=== PATIENT | female | born 1945 | race Caucasian/White ===

== ENCOUNTER 2017-09-13 12:36 | Emergency (ER) | payer OTHER ==
--- NOTE | 2017-09-13 12:41 | UC ---
FLU HPI - HPI Summary HPI Summary: Pt presents with sore throat and mild fatigue since last night. Her was recently dx'd with the flu and she is asking to be tested. Denies fever, chills , SOB, chest pain, abdominal pain, n/v/d/c. - History of Current Complaint Stated Complaint: SORE THROAT Onset/Duration: Sudden Onset Severity Currently: Mild Severity Initially: Mild Pain Intensity: 2 Pain Scale Used: 0-10 Numeric PMH/Surg Hx/FS Hx/Imm Hx Previously Healthy: Yes - Family History Known Family History: Positive: Unknown - Social History Occupation: Retired Lives: With Family Alcohol Use: None Substance Use Type: None Review of Systems Constitutional: Fatigue Skin: Negative Eyes: Negative ENT: Sore Throat Respiratory: Negative Cardiovascular: Negative Neurological: Negative Psychological: Negative All Other Systems Reviewed And Are Negative: Yes Physical Exam - Summary Physical Exam Summary: GENERAL: NAD. WDWN. No pain distress. SKIN: No rashes, sores, ulcers, masses, lesions. No clubbing or cyanosis. HEENT: Head: AT/NC Eyes: EOM intact. Conjunctiva clear without inflammation or discharge. Ears: Hearing grossly normal. TMs intact, no bulging, erythema, or edema. Nose: Nasal mucosa pink and moist. NTTP maxillary and frontal sinus. Throat: Posterior oropharynx without exudates, erythema, or tonsillar enlargement. Uvula midline. NECK: Supple. Nontender. No lymphadenopathy. CHEST: CTAB. No r/r/w. No accessory muscle use. Breathing comfortably and in no distress. CV: RRR. Without m/r/g. Pulses intact. Brisk cap refill. NEURO: Alert. CN II-XII grossly intact. PSYCH: Age appropriate behavior. Triage Information Reviewed: Yes Flu Course/Dx - Course Course Of Treatment: POC flu A positive. Tamiflu - Differential Dx/Diagnosis Provider Diagnoses: Influenza A Discharge - Discharge Plan Condition: Stable Disposition: HOME Prescriptions: Oseltamivir CAP* [Tamiflu CAP*] 75 mg PO BID #10 cap Patient Education Materials: Influenza (DC) Referrals: Maile Suarez MD [Primary Care Provider] - Additional Instructions: If you develop a fever, shortness of breath, chest pain, new or worsening symptoms - please call your PCP or go to the ED.
== END 2017-09-13 13:10 | disposition home or self-care (01) ==
LOC: UCEAST 12:36
DX: J10.1 Influenza due to other identified influenza virus with other respiratory manifestations (principal)
CPT/HCPCS: 87502; 99212; G0463

== ENCOUNTER 2018-03-23 12:49 | Emergency (ER) | payer OTHER ==
[2018-03-23 13:11] VITALS: BP 141/79
[2018-03-23] MEDS ORDERED: Lidocaine 1%* 5 ML VIAL INJ ONE (14:11)
--- NOTE | 2018-03-23 14:39 | ED ---
Laceration/Wound HPI - HPI Summary HPI Summary: c/o laceration to top of left foot after dropping glass jug on it. bleeding controlled. no anticoag. Tetanus status up-to-date. - History of Current Complaint Stated Complaint: FOOT LAC Time Seen by Provider: 03/23/18 14:02 Hx Obtained From: Patient Mechanism of Injury: Sharp/Blunt Trauma Current Severity: None Pain Intensity: 0 Pain Scale Used: 0-10 Numeric Associated Signs & Symptoms: Negative - Allergy/Home Medications Allergies/Adverse Reactions: Allergies Allergy/AdvReac Type Severity Reaction Status Date / Time codeine Allergy GI Upset Verified 03/23/18 13:12 Home Medications: Home Medications Anastrozole (NF) [Arimidex (NF)] 1 tab PO DAILY 03/23/18 [History Confirmed 10/05] Cholecalciferol (Vitamin D3) [D3-1999] 1 tab PO DAILY 03/23/18 [History Confirmed 03/23/18] PMH/Surg Hx/FS Hx/Imm Hx Endocrine/Hematology History: Denies: Hx Anticoagulant Therapy Cardiovascular History: Denies: Hx Cardiac Arrest History: Denies: Hx Dialysis Musculoskeletal History: Denies: Hx Osteoporosis Neurological History: Denies: Hx CVA - Cancer History Cancer Type, Location and Year: Breast Hx Chemotherapy: No Hx Radiation Therapy: Yes - Surgical History Surgery Procedure, Year, and Place: right lumpectomy Infectious Disease History: No Infectious Disease History: Denies: Traveled Outside the [place] in Last 30 Days - Family History Known Family History: Negative: Diabetes - Social History Alcohol Use: Occasionally Substance Use Type: Reports: None Smoking Status (MU): Never Smoked Tobacco Review of Systems Constitutional: Negative Eyes: Negative ENT: Negative Cardiovascular: Negative Respiratory: Negative Gastrointestinal: Negative Genitourinary: Negative Musculoskeletal: Negative Skin: Other Neurological: Negative Psychological: Normal All Other Systems Reviewed And Are Negative: Yes Physical Exam - Summary Physical Exam Summary: active flexion and extension intact distally. pms intact distally. no involvement of tendon visualized. Triage Information Reviewed: Yes Vital Signs On Initial Exam: Initial Vitals Temp Pulse Resp BP Pulse Ox 98.7 F 66 12 141/79 100 03/23/18 13:06 03/23/18 13:06 03/23/18 13:06 03/23/18 13:06 03/23/18 13:06 Vital Signs Reviewed: Yes Appearance: Positive: Well-Appearing Skin: Positive: Warm Head/Face: Positive: Normal Head/Face Inspection Eyes: Positive: Normal Neck: Positive: Supple Respiratory/Lung Sounds: Positive: Clear to Auscultation Cardiovascular: Positive: Normal Abdomen Description: Positive: Nontender Musculoskeletal: Positive: Normal Neurological: Positive: Normal Psychiatric: Positive: Normal AVPU Assessment: Alert - Lance Coma Scale Best Eye Response: 4 - Spontaneous Best Motor Response: 6 - Obeys Commands Best Verbal Response: 5 - Oriented Coma Scale Total: 15 Procedures - Laceration/Wound Repair 1 Location: lower extremity Description: Linear Anesthesia: Local, 1.0% Length, Depth and Shape: 4cm x 0.5cm Betadine Prep?: No - chlorhexadine prep Irrigated w/ Saline (ccs): 10 Laceration/Wound Explored: clean Debridement: minimal Suture Type: Prolene Number of Sutures: 6 Layer Closure?: No Sterile Dressing Applied?: No Diagnostics - Vital Signs Vital Signs Temp Pulse Resp BP Pulse Ox 03/23/18 13:06 98.7 F 66 12 141/79 100 - Laboratory Lab Statement: Any lab studies that have been ordered have been reviewed, and results considered in the medical decision making process. Laceration Repair Course/Dx - Course Course Of Treatment: c/o laceration to top of left foot after dropping glass jug on it. bleeding controlled. no anticoag. Tetanus status up-to-date. Physical exam:active flexion and extension intact distally. pms intact distally. no involvement of tendon visualized. Vital signs normal. Wound sutured. Rx for Keflex - Clinical Impression Provider Diagnoses: Laceration Discharge - Sign-Out/Discharge Documenting (check all that apply): Patient Departure All imaging exams completed and their final reports reviewed: No Studies - Discharge Plan Condition: Stable Disposition: HOME Prescriptions: Cephalexin CAP* [Keflex CAP*] 500 mg PO TID 5 Days #15 cap Patient Education Materials: Care For Your Stitches (ED), Laceration (ED) Referrals: Maile Suarez MD [Primary Care Provider] - Additional Instructions: Sutures out in 10 days. May wash with warm running water and soap starting tomorrow. Do not submerge wound for 5 days. Keep covered when not washing. Take antibiotics as directed. Return for any new or worsening symptoms. - Billing Disposition and Condition Condition: STABLE Disposition: Home - Attestation Statements Provider Attestation: Per institutional requirements, I have reviewed the chart, however, I was not consulted specifically or made aware of this patient by the midlevel provider. I did not personally evaluate, interact with , or disposition this patient.
== END 2018-03-23 14:50 | disposition home or self-care (01) ==
LOC: UCEAST 12:49
DX: S91.312A Laceration without foreign body, left foot, initial encounter (principal); W20.8XXA Other cause of strike by thrown, projected or falling object, initial encounter; Y93.9 Activity, unspecified; Y92.9 Unspecified place or not applicable; Z88.5 Allergy status to narcotic agent
CPT/HCPCS: 12002; 99212; G0463

== ENCOUNTER 2018-08-27 06:48 | Day surgery (SDC) | payer MEDICARE, OTHER ==
[~2018-08-27 06:48] MED LIST: Acetaminophen IV 1GM/100ML * 10 MG/ML VIAL IVPB ONE; Buffered Lidocaine 1% SYRIN* 1 ML/SYRINGE INTRADERM ONE; Dexamethasone TAB* 4 MG PO ONE; DiMENhydriNATE IV* 50 MG/ML VIAL IV PUSH ONE; Famotidine IV* 10 MG/ML 2 ML (20 mg) IV ONE; Lactated Ringers 1000 ML Bag* 1,000 ML IV SCH; Morphine VIAL* 4 MG/ML VIAL (1 ml vial) IV PRN; Naloxone* 0.4 MG/ML 1 ML VIAL IV PRN; Ondansetron TAB* 4 MG PO ONE; PROCHLORPERAZINE INJ 5 MG/ML 2 ML VIAL IV PRN; Scopolamine 1.5 mg* PATCH TRANSDERM PRN; fentaNYL* 50 MCG/ML 2 ML VIAL (100 MCG VIAL) IV PRN; oxyCODONE TAB* 5 MG TAB PO PRN
[2018-08-27] MEDS ORDERED: Famotidine IV* 10 MG/ML 2 ML (20 mg) ONE (07:23)
[2018-08-27] MEDS ORDERED: DiMENhydriNATE IV* 50 MG/ML VIAL ONE (07:23)
[2018-08-27] MEDS ORDERED: Ondansetron ODT TAB* 4 MG ONE (07:24)
[2018-08-27] MEDS ORDERED: ceFAZolin 2 GM PREMIX in ORs 2 GM/50 ML BAG IVPB ONE (07:24)
[2018-08-27] MEDS ORDERED: Dexamethasone TAB* 4 MG ONE (07:24)
[2018-08-27] MEDS ORDERED: Acetaminophen IV 1GM/100ML * 100 ML ONE (07:36)
[2018-08-27] MEDS ORDERED: fentaNYL* 50 MCG/ML 2 ML VIAL (100 MCG VIAL) ONE (08:11)
[2018-08-27] MEDS ORDERED: Midazolam* 1 MG/ML 5 ML VIAL (5 MG) ONE (08:11)
[2018-08-27] MEDS ORDERED: Bupivacaine 0.5%* 50 ML VIAL ONE (09:48)
[2018-08-27] MEDS ORDERED: Propofol* 10 MG/ML 20 ML BTL ONE (10:09)
[2018-08-27] MEDS ORDERED: Ketorolac INJ* 30 MG/ML 1 ML VIAL ONE (10:09)
[2018-08-27] MEDS ORDERED: PROCHLORPERAZINE INJ 5 MG/ML 2 ML VIAL ONE (10:09)
[2018-08-27] MEDS ORDERED: Lidocaine 2% PF * 5 ML VIAL ONE (10:09)
[2018-08-27 12:21] VITALS: BP 145/88
--- NOTE | 2018-08-27 12:25 | OP ---
Operative Report - Blank - Operative Report Date of Operation: 08/27/18 Note: PATIENT: Delores Moore DATE OF : 1945 DATE OF SURGERY: 08/27/2018 SURGEON: Junior Alan MD WELDER FITTER HELPER: CLAUDIO Norwood, whos assistance was necessary for positioning, retraction, help with instrumentation, and closure. ANESTHESIOLOGIST: Dr. Wheeler PREOPERATIVE DIAGNOSIS: Right foot laceration with possible extensor hallucis tendon longus laceration. POSTOPERATIVE DIAGNOSIS: Right foot laceration with extensor hallucis longus tendon laceration and a posttraumatic adhesions of the extensor hallucis brevis tendon. OPERATION: 1. Right foot extensor hallucis longus tendon reconstruction with allograft tendon. 2. Right foot extensor hallucis brevis tendon tenolysis. ANESTHESIA: MAC IMPLANTS: none TOURNIQUET TIME: Less than 90 minutes with an ankle Esmarch tourniquet. SPECIMENS: None ESTIMATED BLOOD LOSS: Minimal COMPLICATIONS: none STATUS: Stable from the operating room to the recovery room and then home. INDICATIONS FOR PROCEDURE: Delores sustained a laceration to her right great toe with persistent pain and weakness of great toe dorsiflexion. Both operative and non-operative treatment alternatives were reviewed. Further, the nature and risks of surgery were reviewed in careful detail, in the office as well as the pre-operative holding area. Our discussions regarding the risks of surgery included, but were not limited to, infection, wound problems, nerve injury, neuroma, RSD, persistent symptoms, blood clot, weakness, decreased range of motion, persistent pain, need for further surgery, failure of the surgery, and even the remote chance of catastrophic complication, including loss of limb. DESCRIPTION OF PROCEDURE: The patient was seen in the preoperative holding unit and informed written consent was obtained. The appropriate extremity was marked. The patient was then brought to the operating room and carefully positioned on the operating room table. Anesthesia was induced. All bony prominences were padded with great care. A chlorhexidine based pre-scrub was performed followed by a chloraprep prep and drape in standard sterile fashion. A surgical safety pause was then conducted in which we confirmed the appropriate patient, extremity, planned procedure, availability of equipment, indication and administration of prophylactic antibiotics, and DVT prophylaxis in the form of a compression boot on the non-surgical extremity. Began with an Esmarch exsanguination of the limb and placed an ankle Esmarch tourniquet. I utilized the laceration scar, which was transverse and extended distally at the medial side and proximally at the lateral side. This provided good visualization of the EHL and EHB tendons. The EHL tendon was lacerated at approximately the level of the MTP joint. There was about 5% of the tendon in continuity laterally, which seemed to be more scar tissue than healthy tendon fibers. Otherwise, there was a gap at the tendon. I completed the transection and removed scar tissue to get to fresh tendon ends. There was an approximately 2.5 cm gap. The eye released. The tendon ends and had good excursion, but a primary repair would've resulted in a good deal of tension on the tendon and the toe held in a dorsiflexed position. Therefore, I decided to move forward with an allograft reconstruction. The semitendinosus allograft was trimmed to match the width of the EHL tendon. I repaired this [id number] both distally and proximally with 4-0 Prolene sutures. Tension was set to match the other toes. The [id number] repair provided good strength and no loosening with great toe range of motion. I then turned my attention to the EHB tendon. At the level of the laceration it was scarred into the periosteum/capsule. I carefully dissected out the tendon with tenotomy scissors. No tears in the tendon were appreciated. Therefore, I performed a tenolysis to free the tendon from its scarred in adhesions. The wound was copiously irrigated and meticulously closed in layers utilizing 3- 0 Monocryl and 3-0 nylon. A sterile dressing was then applied. The patient was then awakened from anesthesia and transferred to the recovery room in stable condition. There were no complications. All needle and sponge counts were correct at the end of the case. ATTESTATION: I attest I was present and scrubbed and performed the critical portions of the procedure myself. POSTOPERATIVE PLAN: The patient will remain heel weightbearing for anticipated duration of 2 weeks. Followup will be in 2 weeks for likely suture removal and Steri-Strip application. We will likely start physical therapy at that time for great toe range of motion.
[2018-08-30] MEDS ORDERED: Scopolamine PATCH Remove* 1 NOTE MISC PATCH OFF ONE ×2 (05:49→06:00)
== END 2018-08-27 12:28 | disposition home or self-care (01) ==
LOC: OR 06:48
PROVIDERS: ATTEND Orthopaedic Surgery
DX: S96.121A Laceration of muscle and tendon of long extensor muscle of toe at ankle and foot level, right foot, initial encounter (principal); W25.XXXA Contact with sharp glass, initial encounter; Y92.9 Unspecified place or not applicable; M65.871 Other synovitis and tenosynovitis, right ankle and foot
CPT/HCPCS: A9270-GY; J0690; J0780; J1240; J1885; J2250; J2704; J3010; J8540; L8699